=== PATIENT | male | born 1940 | race Two or more races ===

== ENCOUNTER 2018-08-23 23:39 | Emergency (ER) | payer OTHER, MEDICAID ==
[~2018-08-23] VITALS: Ht 167.6 cm; Wt 94.9 kg
[2018-08-23 23:46] VITALS: Ht 167.6 cm; Wt 94.9 kg
[2018-08-24 01:00] VITALS: BP 142/68
== END 2018-08-24 01:00 | disposition home or self-care (01) ==
LOC: ED 23:39
DX: R51 Headache (principal); R11.0 Nausea; I10 Essential (primary) hypertension; Z98.890 Other specified postprocedural states
CPT/HCPCS: J1885

== ENCOUNTER 2019-04-13 13:46 | Emergency (ER) | payer OTHER, MEDICAID ==
[~2019-04-13] VITALS: Ht 165.1 cm; Wt 99.8 kg
[2019-04-13 13:53] VITALS: Ht 165.1 cm; Wt 99.8 kg
[2019-04-13 15:49] LABS: CALCIUM 9.2 mg/dL (8.5-10.1); CHLORIDE SERUM 106 mmol/L (98-107); CREATININE SERUM 0.9 mg/dL (0.7-1.3); GLUCOSE SERUM 126 mg/dL (74-106); POTASSIUM SERUM 3.8 mmol/L (3.5-5.1); SODIUM SERUM 140 mmol/L (136-145)
[2019-04-13 16:30] VITALS: BP 148/67
== END 2019-04-13 16:30 | disposition home or self-care (01) ==
LOC: ED 13:46
PROVIDERS: Specialist
DX: I10 Essential (primary) hypertension (principal); E66.01 Morbid (severe) obesity due to excess calories; K43.9 Ventral hernia without obstruction or gangrene; Z90.89 Acquired absence of other organs; Z98.890 Other specified postprocedural states
CPT/HCPCS: 36415; Q0092

== ENCOUNTER 2019-04-25 14:34 | Emergency (ER) | payer OTHER, MEDICAID ==
[~2019-04-25] VITALS: Ht 167.6 cm; Wt 95.3 kg
[2019-04-25 15:26] LABS: PLATELET COUNT 245 x10^3mcL (130-400)
[2019-04-25 15:29] LABS: CALCIUM 8.8 mg/dL (8.5-10.1); CARBON DIOXIDE 22.2 mmol/L (21-32); CHLORIDE SERUM 105 mmol/L (98-107); GLUCOSE SERUM 109 mg/dL (74-106); POTASSIUM SERUM 3.5 mmol/L (3.5-5.1); SODIUM SERUM 141 mmol/L (136-145)
[2019-04-25 15:31] LABS: BASOPHIL % 0 % (0-2)
[2019-04-25 15:34] LABS: ALBUMIN 4.1 g/dL (3.4-5.0); ALKALINE PHOSPHATASE 66 U/L (46-116); ALT/SGPT 39 U/L (16-63); AST/SGOT 20 U/L (15-37); BILIRUBIN TOTAL 0.4 mg/dL (0.20-1.00); TOTAL PROTEIN, SERUM 7.9 g/dL (6.4-8.2)
[2019-04-25 22:28] VITALS: BP 131/60
== END 2019-04-25 22:28 | disposition short-term general hospital (02) ==
LOC: ED 14:34
PROVIDERS: Emergency Medicine
DX: K56.609 Unspecified intestinal obstruction, unspecified as to partial versus complete obstruction (principal); I10 Essential (primary) hypertension; Z98.890 Other specified postprocedural states; Z90.89 Acquired absence of other organs
CPT/HCPCS: J0696; J1885; J2405; J3490; J7030; Q0092